=== PATIENT | female | born 1925 | race Caucasian/White ===

== ENCOUNTER 2016-08-18 18:32 | Observation (INO) ==
[2016-08-18 19:20] LABS: MANUAL DIFF NEEDED? NO
[2016-08-18 19:25] LABS: BASO% 0.2 % (0.0-0.8); EOS# 0.06 X1000 (0.0-0.7); EOS% 0.4 % (0.0-10.0); HEMATOCRIT 39.5 % (37.0-47.0); HEMOGLOBIN 12.2 g/dL (12.0-16.0); IMM GRAN# 0.15 X1000 (0.0-0.04); IMM GRAN% 1.1 % (0.0-0.5); LYMPH# 1.62 X1000 (1.2-3.4); LYMPH% 11.7 % (20.5-51.1); MCH 27.4 PG (27-31); MCHC 30.9 g/dL (33-37); MCV 88.8 FL (81-99); MONO# 0.96 X1000 (0.11-0.59); MONO% 6.9 % (1.7-9.3); MPV 12.1 FL (7.4-10.4); NEUT% 79.7 % (42.2-75.2); PLT 219 X1000 (130-400); RBC 4.45 XMIL (4.2-5.4)
[2016-08-18] MEDS ORDERED: ROCEPHIN 1 GM/NS 1 GM/50 ML IVPB IV ONE (19:28)
[2016-08-18 19:37] LABS: INR 2.71 (0.86-1.15); PROTIME 28.7 Seconds (12.1-15.5)
[2016-08-18 19:40] LABS: ALBUMIN 3.7 g/dL (3.5-5.0); CALCIUM 10.1 mg/dL (8.8-10.2); MAGNESIUM 1.6 mg/dL (1.5-2.7); POTASSIUM 3.1 mmol/L (3.5-5.1); TOTAL BILIRUBIN 0.4 mg/dL (0.20-1.00); TOTAL PROTEIN 6.6 g/dL (6.3-8.3)
--- NOTE | 2016-08-18 19:56 | Diag Imaging Result Doc PS360 ---
EXAM: ANKLE COMPLETE RIGHT INDICATION: R ankle swelling and pain TECHNIQUE: 3 views COMPARISON: None. FINDINGS: There is no discrete fracture, dislocation, or significant intrinsic osseous lesion. The visualized joint spaces are essentially unremarkable. There is extensive soft tissue edema surrounding the ankle. IMPRESSION: Soft tissue edema but no definite acute osseous abnormality. Electronically signed by Fabricio Johnson 08/18/2016 7:54 PM
--- NOTE | 2016-08-18 20:38 | Diag Imaging Result Doc PS360 ---
EXAM: FOOT COMPLETE RIGHT INDICATION: R foot and ankle swelling and pain TECHNIQUE: 3 views COMPARISON: None. FINDINGS: The bones are osteopenic. There is no discrete fracture, dislocation, or significant intrinsic osseous lesion. The visualized joint spaces are essentially unremarkable. There is soft tissue edema at the dorsum of the foot. IMPRESSION: Soft tissue edema but no definite acute osseous abnormality. Electronically signed by Fabricio Johnson 08/18/2016 8:36 PM
[2016-08-18] MEDS ORDERED: TYLENOL PO PRN (21:21)
[2016-08-18] MEDS ORDERED: MORPHINE IV ONE (21:21)
[2016-08-18] MEDS ORDERED: ZOFRAN IV ONE (21:21)
[2016-08-18] MEDS ORDERED: NS 1,000 ML IV ONE (21:21)
[2016-08-18] MEDS ORDERED: MORPHINE IV PRN (21:21)
[2016-08-18] MEDS ORDERED: DECADRON IV ONE (21:21)
--- NOTE | 2016-08-18 21:24 | PROVIDER DOCUMENTATION ---
This chart was entered by Jen Chambers Scribe, acting as scribe for Fabricio Dyer PA. HPI-Musculoskeletal Pain/Inj - GENERAL Chief Complaint: Extremity Pain Stated Complaint: EXTREMITY PAIN Time Seen by Provider: 08/18/16 18:47 Source: patient - HX OF PRESENT ILLNESS-MUSKULOSKELTAL Nature of Presenting Problem: PT IS A 89YOF PRESENTING TO THE ED C/O RIGHT FOOT PAIN. PT STATES HER RIGHT FOOT HAS BECAME INCREASINGLY SWOLLEN, PAINFUL, HOT TO TOUCH, AND DIFFICULT TO WALK ON DUE TO PAIN. PT DENIES ANY KNOWN INJURY AND IS ON BLOOD THINNERS FOR A- FIB AT THIS TIME. PT DENIES ANY OTHER SYMPTOMS OR COMPLAINTS AT THIS TIME Quality of Pain: reports: aching, fullness Severity in ED: moderate Onset/Duration: gradual Timing: still present Modifying Factors: improves with: nothing Any recent injury?: No Locality of Occurance: Home Similar Symptoms Previously?: No Recently seen or treated by another doctor?: No - LOWER EXTREMITY PAIN/INJURY Lower Extremities Pain: foot: right, ankle: right Context / Method of Injury: reports: unknown Associated Symptoms: reports: denies symptoms Review of Systems - Adult - REVIEW OF SYSTEMS - ADULT Constitutional: reports: no symptoms reported Eyes: reports: no symptoms reported Ears, Nose, Mouth & Throat: reports: no symptoms reported Cardiovascular: reports: no symptoms reported Respiratory: reports: no symptoms reported Gastrointestinal: reports: no symptoms reported Genitourinary: reports: no symptoms reported Musculoskeletal: reports: see HPI, joint pain, joint swelling. denies: neck pain Integumentary: reports: see HPI, other (RED, HOT AND SWOLLEN RIGHT ANKLE/FOOT). denies: rash, skin thickening Neurological: reports: no symptoms reported Psychiatric: reports: no symptoms reported Endocrine: reports: no symptoms reported Hematologic/Lymphatic: reports: no symptoms reported Allergic/Immunologic: reports: no symptoms reported All Other Systems: Reviewed and Negative Past History - Adult - PAST MEDICAL HISTORY-ADULT Review of Records: reports: Old Records Reviewed, Nursing Assessment Review, Medications Reviewed, Social history reviewed & non-contributory. Major Childhood Illnesses: reports: denies history Cardiovascular: reports: A-Fib, HTN, hyperlipidemia Respiratory: reports: asthma Gastrointestinal: reports: GERD Obstetrical/Gynecological: reports: denies history Genitourinary: reports: denies history Musculoskeletal: reports: denies history Neurological: reports: denies history Endocrine/Immune: reports: thyroid disorder Other Conditions: reports: denies history - PRIOR SURGERIES/PROCEDURES Surgical/Procedure History: reports: other (thyroid) - PRIOR HOSPITALIZATIONS Prior Hospitalizations: reports: none - IMMUNIZATION STATUS Childhood Immunizations: See Nurse Assessment Flu Vaccine: See Nurse Assessment - FAMILY HISTORY Family History: reviewed, not pertinent - SOCIAL HISTORY Smoking: quit greater than 1 year Substance Use: none/never, denies Alcohol Use Frequency: never Living Situation: care facility Physical Exam-Injury Related - Physical Exam-Injury Related Initial Vital Signs Reviewed: Yes General Appearance: appears well, alert, mild distress, moderate distress. negative: no apparent distress Eyes: PERRL/EOMI, pink conjunctivae Head, Ears, Nose, Mouth & Throat: normocephalic/atraumatic, moist mucous membranes, normal ENT inspection, TMs normal, pharynx normal Neck: non-tender, full range of motion, supple, normal inspection Respiratory: chest non-tender, lungs clear, normal breath sounds, no pleuratic chest pain, no respiratory distress, no accessory muscle use Cardiovascular: normal peripheral pulses, regular rate, rhythm, no gallop, no JVD, no murmur. negative: no edema Abdominal Exam: normal bowel sounds, non tender, soft, no organomegaly, no pulsatile mass Lymphatic: no adenopathy Back Exam: normal inspection, no CVA tenderness, no vertebral tenderness Extremity: no calf tenderness, normal capillary refill, pelvis stable, erythema , inflammation, pedal edema, swelling, tenderness (RIGHT ANKLE). negative: normal range of motion, non-tender, normal gait, normal inspection, no pedal edema Integumentary: warm/dry, erythema, swelling, tenderness, warm. negative: normal color Neurologic: tile sorter II-XII nml as tested, grossly normal, no motor/sensory deficits Psych/Mental Status: normal mood/affect, normal thought content, normal thought process, oriented x 3 - Glascow Coma Score Best Eye Response (Violeta): (4) open spontaneously Best Verbal Response ([place]): (5) oriented Best Motor Response (Violeta): (6) obeys commands Progress - PLAN OF CARE/RESULTS Progress/Plan/Lab Results: Vital Signs - 8 hr 08/18/16 18:38 Temperature 99.1 F Pulse Rate 93 H Respiratory Rate 20 Blood Pressure 164/78 O2 Sat by Pulse Oximetry 97 Laboratory Results - last 24 hr 08/18/16 08/18/16 08/18/16 18:59 18:59 18:59 WBC RBC Hgb Hct MCV MCH MCHC RDW Std Deviation Plt Count MPV Immature Gran % (Auto) Neut % (Auto) Lymph % (Auto) Burnett % (Auto) Eos % (Auto) Baso % (Auto) Immature Gran # (Auto) Neut # (Auto) Lymph # (Auto) [place]ett # (Auto) Eos # (Auto) Baso # (Auto) PT INR APTT (Factor Assay) D-Dimer Sodium 138 Potassium 3.1 L Chloride 98 Carbon Dioxide 29 Anion Gap 11 BUN 24 H Creatinine 1.5 H Estimated GFR/1.73 m2 33 BUN/Creatinine Ratio 16 Glucose 128 H Calculated Osmolality 281 Calcium 10.1 Magnesium 1.6 Total Bilirubin 0.40 AST 11 ALT 9 L Alkaline Phosphatase 97 Creatine Kinase 20 L Troponin T 0.035 Jvr-A-Ddeylfdykrg Pept 1764 H Total Protein 6.6 Albumin 3.7 Globulin 3.0 Albumin/Globulin Ratio 1.0 08/18/16 08/18/16 18:59 18:59 WBC 13.90 H RBC 4.45 Hgb 12.2 Hct 39.5 MCV 88.8 MCH 27.4 MCHC 30.9 L RDW Std Deviation 15.3 H Plt Count 219 MPV 12.1 H Immature Gran % (Auto) 1.1 H Neut % (Auto) 79.7 H Lymph % (Auto) 11.7 L Burnett % (Auto) 6.9 Eos % (Auto) 0.4 Baso % (Auto) 0.2 Immature Gran # (Auto) 0.15 H Neut # (Auto) 11.08 H Lymph # (Auto) 1.62 Burnett # (Auto) 0.96 H Eos # (Auto) 0.06 Baso # (Auto) 0.03 PT 28.7 H INR 2.71 H APTT (Factor Assay) 68.0 H D-Dimer 0.73 H Sodium Potassium Chloride Carbon Dioxide Anion Gap BUN Creatinine Estimated GFR/1.73 m2 BUN/Creatinine Ratio Glucose Calculated Osmolality Calcium Magnesium Total Bilirubin AST ALT Alkaline Phosphatase Creatine Kinase Troponin T Mke-C-Igteyaflomc Pept Total Protein Albumin Globulin Albumin/Globulin Ratio Orders Category Date Time Status ANKLE COMPLETE RIGHT [RAD] Stat Exams 08/18/16 19:28 Completed FOOT COMPLETE RIGHT [RAD] Stat Exams 08/18/16 19:28 Completed CBC WITH ELECTRONIC DIFF [HEME] Stat Lab 08/18/16 18:59 Completed CK PROFILE [SP CHEM] Stat Lab 08/18/16 18:59 Completed COMPREHENSIVE METABOLIC PANEL [CHEM] Stat Lab 08/18/16 18:[address] D-D[address]ER [address] [COAG] Stat Lab 08/18/16 18:59 Completed MAGNESIUM [CHEM] Stat Lab 08/18/16 18:59 Completed PRO B-NATRIURETIC PEPTIDE Stat Lab 08/18/16 18:59 Completed PR[address]IME WITH INR PL [COAG] Stat Lab 08/18/16 18:[address] [COAG] Stat Lab 08/18/16 18:59 Completed TROPONIN T Stat Lab 08/18/16 18:59 Completed URIC ACID [CHEM] Stat Lab 08/18/16 21:18 Ordered CefTRIAXONE 1 GM/NS [Rocephin 1 gm/Ns] Med 08/18/16 19:28 Discontinued 1 gm in 50 ml IV NOW Laboratory Tests 08/18/16 08/18/16 08/18/16 18:59 18:59 18:59 WBC 13.90 H RBC 4.45 Hgb 12.2 Hct 39.5 MCV 88.8 MCH 27.4 MCHC 30.9 L RDW Std Deviation 15.3 H Plt Count 219 MPV 12.1 H Immature Gran % (Auto) 1.1 H Neut % (Auto) 79.7 H Lymph % (Auto) 11.7 L Burnett % (Auto) 6.9 Eos % (Auto) 0.4 Baso % (Auto) 0.2 Immature Gran # (Auto) 0.15 H Neut # (Auto) 11.08 H Lymph # (Auto) 1.62 Burnett # (Auto) 0.96 H Eos # (Auto) 0.06 Baso # (Auto) 0.03 PT 28.7 H INR 2.71 H APTT (Factor Assay) 68.0 H D-Dimer 0.73 H Sodium 138 Potassium 3.1 L Chloride 98 Carbon Dioxide 29 Anion Gap 11 BUN 24 H Creatinine 1.5 H Estimated GFR/1.73 m2 33 BUN/Creatinine Ratio 16 Glucose 128 H Calculated Osmolality 281 Calcium 10.1 Magnesium 1.6 Total Bilirubin 0.40 AST 11 ALT 9 L Alkaline Phosphatase 97 Creatine Kinase 20 L Total Protein 6.6 Albumin 3.7 Globulin 3.0 Albumin/Globulin Ratio 1.0 Orders Category Date Time Status ANKLE COMPLETE RIGHT [RAD] Stat Exams 08/18/16 19:28 Ordered FOOT COMPLETE RIGHT [RAD] Stat Exams 08/18/16 19:28 Ordered CBC WITH ELECTRONIC DIFF [HEME] Stat Lab 08/18/16 18:59 Completed CK PROFILE [SP CHEM] Stat Lab 08/18/16 18:59 Received COMPREHENSIVE METABOLIC PANEL [CHEM] Stat Lab 08/18/16 18:59 Re[address] D-D[address]ER [address] [COAG] Stat Lab 08/18/16 18:59 Received MAGNESIUM [CHEM] Stat Lab 08/18/16 18:59 Received PRO B-NATRIURETIC PEPTIDE Stat Lab 08/18/16 18:[address] WITH INR PL [COAG] Stat Lab 08/18/16 18:[address] [COAG] Stat Lab 08/18/16 18:59 Received TROPONIN T Stat Lab 08/18/16 18:59 Received CefTRIAXONE 1 GM/NS [Rocephin 1 gm/Ns] Med 08/18/16 19:28 Active 1 gm in 50 ml IV NOW Vital Signs - 24 hr 08/18/16 18:38 Temperature 99.1 F Pulse Rate 93 H Respiratory Rate 20 Blood Pressure 164/78 O2 Sat by Pulse Oximetry 97 Result Diagrams: 08/18/16 18:59 08/18/16 18:59 - REASSESSMENT Reassessment #1 Time Reassessed: 21:13 (Discussed c Dr. Alexander who agreed c plan of care to admit pt for IV abx c differential dx of gouty arthritis flare up vs. cellulitis. ) - CONSULTS/PCP/HOSPITALIST Notification #1 *Consult/PCP/Hospitalist*: Dr. Vargas (Hospitalist) Time Discussed: 21:20 Reason/Comments: Will admit pt. Please write manage transfer orders and admit to floor. Departure - Departure Date of Disposition Decision: 08/18/16 Time of Disposition Decision: 21:20 DIAGNOSIS: Cellulitis Qualifiers: Site of cellulitis: extremity Site of cellulitis of extremity: lower extremity Laterality: right Qualified Code(s): L03.115 - Cellulitis of right lower limb Disposition: ADMITTED INPATIENT 09 Certified Medical Emergency: Emergent Condition: Stable Referrals and Follow-Ups: Isak Dash DO [Primary Care Provider] - - Critical Care Note This patient required my direct & personal management of CC.: No Attestation - Physician/ LATRICE Attestation Patient care was provided by Advanced Practice Provider:: Yes Advanced Practice Provider:: Fabricio Dyer Advanced Practice Provider documentation review:: The Mid-level provider documentation, treatment plan and medical decision making was reviewed by the physician who agrees with all treatment and medical decision making by the MLP. This chart was documented by the indicated scribe, (Jen Chambers Scribe) and accurately reflects the services I performed and decisions made by me, Fabricio Dyer PA, as attested by the provider's signature.
[2016-08-18] MEDS ORDERED: CATAPRES PO ONE (23:49)
[2016-08-19] MEDS ORDERED: MORPHINE IV PRN (08:35)
[2016-08-19] MEDS ORDERED: NORCO-10 PO PRN (09:37)
[2016-08-19 10:42] LABS: HEMATOCRIT 36.8 % (37.0-47.0); HEMOGLOBIN 11.5 g/dL (12.0-16.0); MCH 27.7 PG (27-31); MCHC 31.3 g/dL (33-37); MCV 88.7 FL (81-99); RBC 4.15 XMIL (4.2-5.4)
[2016-08-19 10:52] LABS: INR 2.52 (0.86-1.15); PROTIME 27.2 Seconds (12.1-15.5)
[2016-08-19 10:59] LABS: CALCIUM 9.8 mg/dL (8.8-10.2); POTASSIUM 3.8 mmol/L (3.5-5.1)
[2016-08-19] MEDS: SYNTHROID PO SCH (13:38)
[2016-08-19] MEDS: ISOPTIN SR PO SCH (13:38)
[2016-08-19] MEDS: LANOXIN PO SCH (13:38)
[2016-08-19] MEDS: PRILOSEC PO SCH (13:38)
[2016-08-19] MEDS: COLCRYS PO SCH (13:38)
--- NOTE | 2016-08-19 14:15 | HISTORY AND PHYSICAL ---
CHIEF COMPLAINT: Right foot and ankle pain. HISTORY OF PRESENT ILLNESS: This is an 89-year-old female with a history of atrial fibrillation, asthma, hypertension, hypothyroid, gastroesophageal reflux disease, who presented to the emergency room complaining of left ankle and foot pain, as well as edema. This has developed over the last 4-5 days, increasing in the last 24 hours. She states that her foot has been intermittently hot to touch and she is having difficulty bearing weight and walking. She denies any known injury, any decrease in sensation to her foot or toes. X-ray of her right foot and ankle revealed soft tissue edema but no osseous abnormality. In the emergency room she was given Decadron, morphine, and Rocephin and admitted for further evaluation and treatment. PAST MEDICAL HISTORY: Atrial fibrillation, on chronic anticoagulation, asthma, gastroesophageal reflux disease, hyperlipidemia, hypertension, hypothyroid, and chronic kidney disease. PAST SURGICAL HISTORY: Denies. SOCIAL HISTORY: She denies alcohol, tobacco, or illicit drug use. She is a former smoker but she quit many years ago. ALLERGIES: Latex which causes itching. HOME MEDICATIONS: MiraLAX 17 g daily, torsemide 10 b.i.d., Lanoxin 125 mcg daily, prednisone 5 daily, Prilosec 1 tablet daily, Synthroid 112 mcg daily, verapamil ER 120 daily, Remeron 30 mg at bedtime, warfarin 3 mg daily, prednisone 2.5 at bedtime, [place] 10 every 4-6 hours p.r.n. REVIEW OF SYSTEMS: A 14-point review of systems is discussed with the patient with pertinent positives stated in the HPI. She denied chest pain, palpitations, syncope, dizziness, any nausea vomiting, diarrhea, constipation, black or bloody vomitus, black or bloody stools, hematuria, dysuria, frequency, urgency, any shortness of breath, PND, orthopnea, hemoptysis. PHYSICAL EXAMINATION: GENERAL: This is an 89-year-old female who is sitting up in the bed, in no distress. VITAL SIGNS: Blood pressure is 162/86, with a heart rate of 96, respirations are 20, temperature is 97.4 degrees oral with room air saturations of 96 to 100%. CARDIOVASCULAR: Regular rate and rhythm. S1 and S2 are appreciated. PULMONARY: Breath sounds are clear with no increased work of breathing noted. GASTROINTESTINAL: Abdomen is soft, nontender, nondistended with bowel sounds in all 4 quadrants. BACK: No CVAT. No spine tenderness. MUSCULOSKELETAL: Good range of motion to joints except right ankle and foot are limited to pain. EXTREMITIES: No clubbing, cyanosis, or edema to upper extremities or left lower extremity. Right lower extremity has pedal and ankle edema, as well as erythema to her right ankle and foot. Calves are nontender. Pulses are palpable x4. NEUROLOGIC: She is alert and oriented x3. DIAGNOSTICS: WBC is 13.9, with hemoglobin 12.2, hematocrit 39.5, and platelets of 219,000. Sodium is 138, potassium 3.1, BUN is 24, creatinine 1.5, with a glucose of 128. Her INR is 2.71. D-dimer is 0.73. Foot and ankle x-ray both reveal no definite osseous abnormalities. ASSESSMENT AND PLAN: 1. Cellulitis of right ankle and foot. 2. Questionable gout. 3. Hypertension. 4. Atrial fibrillation, on chronic anticoagulation. 5. Gastroesophageal reflux disease. 6. Hypothyroid. 7. Acute kidney injury on chronic kidney disease. PLAN: She will be admitted to the hospital. Placed on telemetry. We will identify her home medications and continue as appropriate. We will obtain blood cultures as she does have questionable cellulitis. Will also check a uric acid. Begin colchicine. Will continue with gentle hydration. Will treat potassium and trend labs. It looks like her baseline creatinine has been 1.4 to 1.5. Will continue to monitor. Will hold any renal toxic medications. Further treatments pending hospital course. Dictated by MIRIAM Barrera for Shade Vargas MD cc: MIRIAM Barrera MD
[2016-08-19] MEDS ORDERED: REMERON PO SCH (21:00)
[2016-08-19] MEDS ORDERED: COUMADIN PO SCH (21:00)
[2016-08-19] MEDS: SENOKOT PO SCH (22:10)
[2016-08-19] MEDS: DEMADEX PO SCH (22:10)
[2016-08-20] MEDS: PRILOSEC PO SCH (06:12)
[2016-08-20] MEDS: SYNTHROID PO SCH (06:12)
[2016-08-20 06:43] LABS: CALCIUM 9.9 mg/dL (8.8-10.2); POTASSIUM 3.5 mmol/L (3.5-5.1)
[2016-08-20 06:52] LABS: HEMOGLOBIN 10.6 g/dL (12.0-16.0); MCH 27.6 PG (27-31); MCHC 31.2 g/dL (33-37); MCV 88.5 FL (81-99); MPV 12.7 FL (7.4-10.4); RBC 3.84 XMIL (4.2-5.4)
[2016-08-20 06:55] LABS: INR 2.57 (0.86-1.15); PROTIME 27.6 Seconds (12.1-15.5)
[2016-08-20] MEDS ORDERED: COLACE PO SCH (09:00)
[2016-08-20] MEDS ORDERED: MIRALAX PO SCH (09:00)
[2016-08-20] MEDS ORDERED: KEFLEX PO SCH (09:00)
[2016-08-20] MEDS: COLCRYS PO SCH (09:23)
[2016-08-20] MEDS: SENOKOT PO SCH (09:23)
[2016-08-20] MEDS: DEMADEX PO SCH (09:23)
[2016-08-20] MEDS: ISOPTIN SR PO SCH (09:23)
[2016-08-20] MEDS: LANOXIN PO SCH (09:24)
[2016-08-20 13:53] VITALS: BP 150/62
--- NOTE | 2016-08-21 08:39 | DISCHARGE SUMMARY ---
ADMISSION DATE: 08/18/2016 DISCHARGE DATE: 08/20/2016 PRIMARY CARE PHYSICIAN: Dr. Isak Dash. ADMISSION DIAGNOSES: 1. Cellulitis of the right foot and ankle. 2. Questionable gout. 3. Hypertension. 4. Chronic atrial fibrillation, on anticoagulation. 5. Gastroesophageal reflux disease. 6. Hypothyroidism. 7. An acute kidney injury on chronic kidney disease. DISCHARGE DIAGNOSES: 1. Cellulitis of the right foot and ankle. 2. Questionable gout. 3. Hypertension. 4. Chronic atrial fibrillation, on anticoagulation. 5. Gastroesophageal reflux disease. 6. Hypothyroidism. 7. An acute kidney injury on chronic kidney disease. SUMMARY OF FINDINGS: This is an 89-year-old female who presented to the emergency room complaining of left ankle and foot pain, as well as edema that had developed over 4-5 days prior to arrival; increasing over the 24 hours prior to arriving. She states that her foot had been intermittently hot to touch and that she was having difficulty bearing weight and walking. No known injury. No decrease in sensation to her foot or toes. X-ray of her right foot and ankle revealed some soft tissue edema but no osseous abnormality. In the emergency room, she was given Decadron, morphine, and Rocephin. She was admitted. We also checked a uric acid level and began colchicine, as there was some question that it may be gout. She did have an elevation in her uric acid level at 14.3. She was placed on colchicine. Her potassium on arrival was 3.1. We supplemented that, and it is up to 3.5. Her white blood cell count is back to normal, and she has remained afebrile. So, it is felt that she can safely be discharged home today. DISCHARGE MEDICATIONS: 1. We will give her prescription for Keflex 500 mg p.o. q.12 hours, #14, with no refills. 2. Colchicine 0.6 mg one p.o. daily, #30, with no refills. 3. [place] 10 one p.o. q.4-6 hours p.r.n., #20, with no refills. She will continue her home medications of 1. Lanoxin 125 mcg p.o. daily. 2. Colace 100 mg p.o. daily. 3. Remeron 30 mg p.o. at bedtime. 4. Omeprazole 20 mg p.o. daily. 5. MiraLAX 17 g p.o. daily. 6. Senna-Gen 8.6 mg p.o. b.i.d. 7. Torsemide 10 mg p.o. b.i.d. 8. Verapamil 120 mg p.o. daily. 9. Coumadin 3 mg p.o. daily. 10. Synthroid 112 mcg p.o. daily. 11. Prednisone 5 mg p.o. daily and 2.5 mg p.o. at bedtime. FOLLOWUP: She will need to follow up with her primary care physician in 1-2 weeks and call his office for an appointment. All discharge instructions have been reviewed with the patient, and she verbalized understanding. Time spent on discharge: 35 minutes. Dictated by MIRIAM Gan for Shade Vargas MD cc: MIRIAM Gan MD Thomas E. Lockard, DO
== END 2016-08-20 15:35 | disposition home or self-care (01) ==
LOC: P.MEDSURG 18:32 → P.ED 18:32 → SUATTDRO 21:28
PROVIDERS: ATTEND Family Medicine